=== PATIENT | male | born 1960 | race American Indian/Alaskan Native ===

== ENCOUNTER 2017-12-13 14:15 | Emergency (ER) | payer SELFPAY ==
[2017-12-13] MEDS ORDERED: MOTRIN PO ONE (17:11)
--- NOTE | 2017-12-13 18:11 | XRay Report ---
FINAL REPORT EXAM: XR RIBS UNI W PA CHEST 3+V RT HISTORY: rib pain TECHNIQUE: Frontal view of the chest and oblique view right ribs FINDINGS: There is no evidence of infiltrate, pneumothorax or pleural fluid collection. The cardiomediastinal silhouette is normal in appearance. The bony structures are notable for the appearance of degenerative change of the right acromioclavicular joint. Visualization detail of the thoracic spine is limited. IMPRESSION: 1. No evidence of an acute pulmonary process. 2. Appearance of degenerative change right acromioclavicular joint. 3. No plain film evidence of a right rib abnormality. If further imaging is required, CT may be helpful.
--- NOTE | 2017-12-13 18:18 | XRay Report ---
FINAL REPORT EXAM: XR TIBIA FIBULA 2V LT HISTORY: left tib/fib pain TECHNIQUE: Frontal and lateral views left tibia and fibula Comparison: None FINDINGS: There is no evidence of fracture, subluxation, lytic or blastic change or periosteal reaction. There is an enthesophyte arising from the anterior superior aspect of the patella. The soft tissues are notable for evidence of atherosclerotic vascular calcification. IMPRESSION: 1. No evidence of acute bony abnormality. 2. Enthesophyte anterior superior patella 3. Evidence of atherosclerotic vascular calcification.
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
[2017-12-13 18:47] VITALS: BP 138/90
== END 2017-12-13 18:46 | disposition home or self-care (01) ==
LOC: ED 14:15
DX: S20.211A Contusion of right front wall of thorax, initial encounter (principal); S86.912A Strain of unspecified muscle(s) and tendon(s) at lower leg level, left leg, initial encounter; F17.200 Nicotine dependence, unspecified, uncomplicated; V49.49XA Driver injured in collision with other motor vehicles in traffic accident, initial encounter; Y93.89 Activity, other specified; Y99.8 Other external cause status; Y92.410 Unspecified street and highway as the place of occurrence of the external cause
CPT/HCPCS: 99283